=== PATIENT | male | born 1965 | race Caucasian/White ===

== ENCOUNTER 2019-06-14 09:43 | Outpatient (CLI) | payer OTHER, SELFPAY ==
--- NOTE | 2019-06-14 11:00 | NEURO_ITS ---
Patient Number: [id number] Impression: # Complains of numbness of left hand. # Left ulnar neuropathy across the elbow. # Left Carpal Tunnel Syndrome of moderate degree. # Needle/EMG exam neurogenic. Nerve Conduction Studies Anti Sensory Summary Table Stim Site NR Peak (ms) P-T Amp (?V) Site1 Site2 Delta-P (ms) Dist (cm) [place] (m/s) Left Median Anti Sensory (2-3nd Digit) Wrist 4.5 5.9 Wrist 2-3nd Digit 4.5 14.0 31 Wrist 4.7 7.4 Wrist 2-3nd Digit 4.5 14.0 31 Left Radial Anti Sensory (Base 1st Digit) Wrist 1.9 29.6 Wrist Base 1st Digit 1.9 0.0 Left Ulnar Anti Sensory (5th Digit) Wrist 3.0 15.3 Wrist 5th Digit 3.0 14.0 47 Motor Summary Table Stim Site NR Onset (ms) O-P Amp (mV) Site1 Site2 Delta-0 (ms) Dist (cm) [place] (m/s) Left Median Motor (Abd Poll Brev) Wrist 5.7 0.6 Elbow Wrist 4.8 29.0 60 Elbow 10.5 0.5 Left Ulnar Motor (Abd Dig Minimi) Wrist 4.2 2.5 A Elbow Wrist 7.8 30.0 38 A Elbow 12.0 0.9 B Elbow Wrist 5.1 25.0 49 B Elbow 9.3 1.2 F Wave Studies NR F-Lat (ms) L-R F-Lat (ms) Left Median (Mrkrs) (Abd Poll Brev) 30.82 Left Ulnar (Mrkrs) (Abd Dig Min) 29.28 EMG Side Muscle Nerve Root Ins Act Fibs Amp Dur Recrt Comment Left 1stDorInt Ulnar C8-T1 Nml Nml Nml >12ms Reduced Left Ext Indicis Radial (Post Int) C7-8 Nml Nml Nml Nml Nml Left Ext Digitorum Radial (Post Int) C7-8 Nml Nml Nml Nml Nml Left BrachioRad Radial C5-6 Nml Nml Nml Nml Nml Left PronatorTeres Median C6-7 Nml Nml Nml Nml Nml Left Abd Poll Brev Median C8-T1 Nml Nml Nml Nml Nml Left ABD Dig Min Ulnar C8-T1 Nml Nml Nml >12ms Reduced MTDD
== END 2019-06-14 09:44 | disposition home or self-care (01) ==
PROVIDERS: PCP Internal Medicine; Visit Provider Internal Medicine
DX: R20.0 Anesthesia of skin (principal); G56.22 Lesion of ulnar nerve, left upper limb; G56.02 Carpal tunnel syndrome, left upper limb
CPT/HCPCS: 95886; 95909

== ENCOUNTER 2022-01-11 00:48 | Day surgery (SDC) | payer OTHER, SELFPAY ==
[2021-12-24 14:00] VITALS: BMI 50.3
--- NOTE | 2022-01-08 14:33 | PM.HPGS ---
History of Present Illness History of Present Illness Consent: Risks, benefits, and alternatives have been discussed and questions answered. Patient agrees to proceed with procedure. Chief complaint: neoplasm screening, hx colon polyps Narrative: Raleigh Robertson is a 56 year old male referred for colon cancer screening. He had an adenoma removed about 3 years ago. Review of Systems Review of Systems: All systems reviewed & are unremarkable except as noted in HPI and below PMFSH Past Medical History Medical History Ankle pain, left Degenerative joint disease, ankle, left Essential (primary) hypertension Fatigue Hyperglycemia Numbness of left hand Obesity Peroneal tendonitis Pes cavus of left foot Surgical History Surgical History History of hernia repair History of right knee surgery Family History Family History Mother Patient's mother is in good health Social History Social History Smoking status: Never smoker Second hand tobacco smoke exposure: No Alcohol intake: current Drinks per week: 2 Substance use type: does not use Meds Home Medications and Allergies Home Medications Medication Instructions Recorded Confirmed Type carvedilol 25 mg tablet 25 mg PO Q12H #180 tabs 07/29/21 01/11/22 Rx Allergies Allergy/AdvReac Type Severity Reaction Status Date / Time No Known Allergies Allergy Verified 01/11/22 09:39 Exam Resp: Auscultation: clear to auscultation bilaterally Cardio: Rate: regular rate Rhythm: regular rhythm GI: GI Palp: Yes Soft to palpation and No Tenderness to palpation present (GI) Assessment and Plan Assessment and plan (1) Colon cancer screening: Code(s): Z12.11 - Encounter for screening for malignant neoplasm of colon Status: Acute Assessment and Plan: Colonoscopy with possible biopsy or polypectomy or cautery or injection of substances.
[2022-01-11 09:40] VITALS: BP 168/91; PULSE 59; RESP 24; TEMP 36.3; O2SAT 94; BMI 51.8
[2022-01-11] MEDS: LACTATED RINGERS 1,000 ML 150 ML IV CONT (09:42)
--- NOTE | 2022-01-11 10:11 | WPDANESEPPF ---
Anes - Initial Pre Proc Eval Procedure: Operation Date: 01/11/22 10:30 Proposed Procedures p Screening Colonoscopy - Ahsan Noble MD Date/Time: 01/11/22 10:11 Surgeon: Ahsan Noble MD Pre Op Diagnosis: neoplasm screening, hx colon polyps Patient Data Age: 56 Gender: M Height: 1.75 m Weight: 159.3 kg Last Vital Signs Temp 97.3 F L 01/11/22 09:40 Pulse 59 L 01/11/22 09:40 Resp 24 H 01/11/22 09:40 BP 168/91 H 01/11/22 09:40 Pulse Ox 94 01/11/22 09:40 O2 Del Method Room Air 01/11/22 09:40 Allergies Allergy/AdvReac Type Severity Reaction Status Date / Time No Known Allergies Allergy Verified 01/11/22 09:39 Home Medications Medication Instructions Recorded Confirmed Type carvedilol 25 mg tablet 25 mg PO Q12H #180 tabs 07/29/21 01/11/22 Rx Patient hx anesthesia problems: none Family hx anesthesia problems: none Results Review: All pre-operative results and documents have been reviewed as part of the pre-operative evaluation. [facility] Past Medical History Medical History Ankle pain, left Degenerative joint disease, ankle, left Essential (primary) hypertension Fatigue Hyperglycemia Numbness of left hand Obesity Peroneal tendonitis Pes cavus of left foot Surgical History Surgical History History of hernia repair History of right knee surgery Family History Family History Mother Patient's mother is in good health Social History Social History Smoking status: Never smoker Second hand tobacco smoke exposure: No Alcohol intake: current Drinks per week: 2 Substance use type: does not use Anes - Eval Final PreProcedure Day of Procedure 01/11/22 10:11 Patient weight: normal Heart: regular rate and rhythm Lungs: clear to auscultation Airway: Mallampati scale class II Neurological: alert and oriented Last oral intake: >/= 8 hours ASA classification: III Emergent: no Anesthetic plan: proceed Anesthesia type and monitoring: general GIVS and standard monitoring Results Review: All pre-operative results and documents have been reviewed as part of the pre-operative evaluation. Informed Consent: The patient's anesthetic plan and its attendant risks and benefits were discussed with the patient/family/POA. Questions were solicited and answers provided to the satisfaction of the patient/family/POA.
[2022-01-11 10:44] VITALS: BP 132/72; PULSE 51; RESP 20; O2SAT 92
[2022-01-11 10:54] VITALS: BP 132/61; PULSE 54; RESP 16; O2SAT 95
[2022-01-11 11:04] VITALS: BP 144/78; PULSE 52; RESP 18; O2SAT 95
== END 2022-01-11 11:08 | disposition home or self-care (01) ==
PROVIDERS: PCP Internal Medicine; Visit Provider Internal Medicine Gastroenterology
PROC: 0DJD8ZZ Inspection of Lower Intestinal Tract, Via Natural or Artificial Opening Endoscopic (ICD-10-PCS; CPT 45378; principal; 2022-01-11 10:30)
DX: Z12.11 Encounter for screening for malignant neoplasm of colon (principal); K57.30 Diverticulosis of large intestine without perforation or abscess without bleeding; I10 Essential (primary) hypertension; M19.90 Unspecified osteoarthritis, unspecified site; R53.83 Other fatigue; R73.9 Hyperglycemia, unspecified; Q66.72 Congenital pes cavus, left foot
CPT/HCPCS: 45378; J2704; J7120

== ENCOUNTER 2022-01-26 13:02 | Outpatient (CLI) | payer SELFPAY ==
[2022-01-26 13:35] LABS: Appearance Urine Cloudy (Clear); Bilirubin Urine Negative (Negative); Blood Urine 3+ (Negative); Color Urine Amber (Yellow); Glucose Urine UA Negative (Negative); Ketones Urine Negative (Negative); Leukocyte Esterase Ur Negative LEU/UL (Negative); Nitrate Urine Negative (Negative); Protein Urine 2+ mg/dL (Negative); Specific Grav Ur 1.025 (1.001-1.035); Urobilinogen Urine 0.2 mg/dL (<2.0); pH Urine 5.5 (5.0-9.0)
[2022-01-26 13:45] LABS: RBC Urine >75 /hpf (0-2); Squamous Epithelial Cell Urine Rare /hpf (Few); WBC Urine 0-3 /hpf
[2022-01-26 13:50] LABS: Add Urine Microscopic? YES
== END 2022-01-26 13:03 | disposition home or self-care (01) ==
PROVIDERS: PCP Internal Medicine; Visit Provider Internal Medicine
DX: R31.9 Hematuria, unspecified (principal)
CPT/HCPCS: 81001

== ENCOUNTER 2022-04-04 18:06 | Emergency (ER) | payer OTHER, SELFPAY ==
[2022-04-04 18:17] VITALS: BP 212/95; PULSE 79; RESP 18; TEMP 37.1; O2SAT 98
--- NOTE | 2022-04-04 18:36 | ED.EXTPRO ---
HPI - Extremity Problem General Chief complaint: Extremity Problem,Nontraumatic Stated complaint: Sore 3rd right toe Time Seen by Provider: 04/04/22 18:28 History of Present Illness HPI Narrative: Patient is a 56-year-old male with a history of hypertension presenting with a toe infection. Patient states that yesterday he noticed that his second toe on his right foot was red and swollen. States that he then noticed pus surrounding his nail. States that it did not drain or get smaller today so he came in for evaluation. He denies any other lesions. He denies fevers or chills, nausea or vomiting, or other systemic symptoms. No further complaints. No history of diabetes. Related Data Allergies Allergy/AdvReac Type Severity Reaction Status Date / Time No Known Allergies Allergy Verified 04/04/22 18:26 Review of Systems Review of Systems: All systems reviewed & are unremarkable except as noted in HPI and below PMFSH Past Medical History Medical History Ankle pain, left Degenerative joint disease, ankle, left Essential (primary) hypertension Fatigue Hyperglycemia Numbness of left hand Obesity Peroneal tendonitis Pes cavus of left foot Surgical History Surgical History History of hernia repair History of right knee surgery Family History Family History Mother Patient's mother is in good health Social History Social History Smoking status: Never smoker Second hand tobacco smoke exposure: No Alcohol intake: current Drinks per week: 2 Substance use type: does not use Lack of Transportation: No Lack of Food: Never True Current Housing: I Have Housing Concerned About Future Housing: No Difficulty Paying Gas/Electric Bills: No Difficulty Paying for Meds: No Currently Unemployed: No Education: Trade/Vocational Certificate Difficulty w/ Childcare or Family Care: No Exam Narrative: GENERAL: Well-appearing, well-nourished, and in no acute distress. HEAD: Normocephalic, atraumatic. EYES: PERRLA and EOMI. ENT: Nares clear, no rhinorrhea or epistaxis. Mucous membranes moist. NECK: Supple. CHEST: Clear to auscultation. No respiratory distress. HEART: Regular rate and rhythm. No murmur heard. Normal peripheral pulses. ABDOMEN: Soft, nontender, nondistended, normal active bowel sounds. EXTREMITIES: Second toe on right foot with distal erythema and purulence surrounding the nail consistent with paronychia, 2+ DP/PT pulses, sensation is intact SKIN: Warm, dry, no rash. NEURO: No focal deficits. Alert and oriented x3. PSYCH: Normal mood and affect. Course Vital Signs Vital signs: Vital Signs Temperature 98.8 F 04/04/22 18:17 Pulse Rate 79 04/04/22 18:17 Respiratory Rate 18 04/04/22 18:17 Blood Pressure 212/95 H 04/04/22 18:17 Pulse Oximetry 98 04/04/22 18:17 Oxygen Delivery Room Air 04/04/22 18:17 Temperature 98.8 F 04/04/22 18:17 Pulse Rate 80 04/04/22 20:07 Respiratory Rate 19 04/04/22 20:07 Blood Pressure 212/95 H 04/04/22 18:17 Pulse Oximetry 96 04/04/22 20:07 Oxygen Delivery Room Air 04/04/22 18:17 Procedures Abscess I/D foot: Date of Incision: 04/04/22 Local Anesthetic: lidocaine 1% Amount of anesthesia used (mL): 5 Technique: incised with #11 blade Amount of fluid expressed (mL): 5 Packing used?: none I&D Results: Pus Abcess I&D Additional Comments: drained paronychia on second toe on right foot without complication MDM - Extremity (Nontraumatic) MDM Narrative Medical decision making narrative: Patient is a 56-year-old male presenting with a paronychia on his right second toe. Patient is hypertensive, advised to follow-up with his PCP regarding this. Dig
[2022-04-04] MEDS: LIDOCAINE HCL 1% PF 30 ML VIAL 10 ML INFILTRATE (20:06)
[2022-04-04 20:07] VITALS: PULSE 80; RESP 19; O2SAT 96
== END 2022-04-04 20:09 | disposition home or self-care (01) ==
PROVIDERS: Emergency Provider Emergency Medicine; PCP Internal Medicine
DX: L03.031 Cellulitis of right toe (principal); I10 Essential (primary) hypertension; M19.072 Primary osteoarthritis, left ankle and foot; E66.9 Obesity, unspecified; Z68.42 Body mass index [BMI] 45.0-49.9, adult
CPT/HCPCS: 10060; 99283